=== PATIENT | male | born 1955 | race Caucasian/White ===

== ENCOUNTER → 2025-01-29 11:16 | Outpatient (REF) | payer MEDICARE, SELFPAY | LOC: HWRAD 11:16 | PROVIDERS: ATTENDING PHYSICIAN Family Medicine | DX: M54.41 Lumbago with sciatica, right side (principal); M54.42 Lumbago with sciatica, left side | CPT/HCPCS: 72110 ==

== ENCOUNTER 2025-07-10 16:12 | Emergency (ER) | payer MEDICARE, SELFPAY ==
[2025-07-10 16:14] VITALS: BP 154/86
[2025-07-10 16:42] VITALS: BP 153/77
[2025-07-10 16:43] LABS: COVID-19 Antigen Negative (Negative)
[2025-07-10 16:53] VITALS: BMI 33.6
[2025-07-10 17:00] VITALS: BP 147/84
--- NOTE | 2025-07-10 17:15 | ED.GENMED ---
History of Present Illness
General
Chief Complaint: Cold/Flu/URI Symptoms
Source: patient
Exam Limitations: none
Time Seen by Provider: 07/10/25 16:46
Nursing documentation reviewed up to this point in time: agreed with
History of Present Illness
History of Present Illness:
Patient is a 70-year-old male who presents with fever sore throat and cough that started on Monday, 2 days ago. Patient reports the cough is getting worse. He does have pressure when he coughs and had trouble sleeping last night due to cough.
Patient was a former smoker.
He denies any actual shortness of breath however complains of persistent cough and chest soreness with cough. He does complain of headaches fevers.
He is drinking fluids.
Past History
Past History
ED Past Medical History: Other (BPH with elevated PSA) and Other (History of diverticulitis, hiatal hernia, skin cancer)
ED Past Surgical History: None (Noncontributory), Tonsilectomy and Other (Left arm pinning, surgery on the lumbar spine)
Social History
Tobacco: Non-smoker
Alcohol: Occasional
Drug: None
Personal:
Living: with family
Employment: Employed
Family History
Family History: Other (Noncontributory)
Phy Exam
General Physical Exam
General Presentation: no apparent distress
General age: appears stated age
General Skin: warm and dry
General Habitus: normal
General Mental: alert
General Hydration: appears well hydrated
Pulmonary Exam
Pulmonary Exam: no respiratory distress and other (scattered rhonchi )
Neurological Exam
Neurological Exam: alert and oriented x3
Musculoskeletal Exam
Musculoskeletal Exam: full ROM
Skin Exam
Skin Exam: normal color and warm/dry
Psychiatric Exam
Psychiatric Exam: normal mood/affect
Course
Orders/Labs/Results
Orders:
Orders
07/10/25 16:18
COVID-19 Antigen Urgent
Source: Nasal Swab
INF RAPID [Influenza A+B Rapid Molecular] Urgent
SARA Source: Nasal Swab
Specimen Description:
07/10/25 17:21
Albuterol Nebs [Ventolin Nebules] 2.5 mg INH R NOW STA
Benzonatate [Tessalon Perles] 200 mg PO NOW STA
Oseltamivir Phosphate [Tamiflu] 75 mg PO NOW STA
Chest [CR Chest - 2 Views ] Urgent
Comment:
Reason For Exam: cough + flu
07/10/25 20:23
Albuterol Nebs [Ventolin Nebules] 2.5 mg INH R NOW STA
Vital Signs
Initial and Last Documented VS:
Initial Vital Signs
Temp Pulse Resp BP Pulse Ox
99.9 F 79 20 154/86 96
07/10/25 16:14 07/10/25 16:14 07/10/25 16:14 07/10/25 16:14 07/10/25 16:14
Last Documented Vital Signs
Temp Pulse Resp BP Pulse Ox
99.9 F 64 20 132/72 95
07/10/25 16:14 07/10/25 18:00 07/10/25 18:00 07/10/25 18:00 07/10/25 18:00
MDM/Problems Addressed
Differential Diagnosis Includes:
Not limited to pneumonia, URI, COVID, influenza
MDM/Problems Addressed:
Patient is a 70-year-old male presents with fever sore throat cough, due to worsening cough presented to the ER. Patient is flu positive. He has scattered rhonchi audible cough. Low-grade temp at 99.9. He is not hypoxic. Will give a neb obtain
chest x-ray to rule out pneumonia and give Tessalon Perle and Tamiflu.
Patient is a non-smoker former smoker. He is well-appearing stable for discharge home will reassess after neb and to see how he is feeling.
Patient feeling much better. He was given a second treatment. He is not hypoxic chest x-ray negative for pneumonia feels well to go home will DC with Tamiflu and Tessalon Perles along with inhaler as previously stated. Return precautions given
*Radiology
Radiology exam reviewed: radiology read reviewed
*Pulse Oximetry
SaO2: 96
Oxygen Mode of Delivery: Room air
Patient hypoxic: no
*Critical Care Note
Total Time (30-74mins, 75-104mins- exclusive of procedures): Not Applicable
ED Attending Note
-
Portions of this chart may have been created with voice recognition software.� Occasional wrong word or��sound alike� substitutions may have occurred due to the inherent limitations of voice recognition software.
Discharge Plan
Departure
Patient Disposition: Home (Routine Discharge)
Date of Disposition: 07/10/25
Time of Disposition: 20:44
Patient with high blood pressure during this ER visit?: Yes
Condition: Fair
Covid-19: Not Applicable
Discharge Problem:
Influenza A
Instructions: Flu in adults - ED (DC), BLOOD PRESSURE
Prescriptions:
New
oseltamivir [Tamiflu] 75 mg capsule
75 mg PO BID 5 Days Qty: 10 0RF
benzonatate 200 mg capsule
200 mg PO TID PRN (Reason: Cough) Qty: 10 0RF
albuterol sulfate 90 mcg/actuation HFA aerosol inhaler
2 inh inhalation Q6H PRN (Reason: shortness of breath or wheezing) Qty: 6.7 0RF
No Action
cyanocobalamin (vitamin B-12) 1,000 MCG tablet
1,000 mcg PO DAILY
aspirin 81 MG tablet,delayed release (DR/EC)
81 mg PO DAILY
niacin 500 MG tablet
500 mg PO BID
pyridoxine (vitamin B6) [Vitamin B-6] 100 MG tablet
200 mg PO DAILY
cholecalciferol (vitamin D3) 2,000 UNITS tablet
2,000 units PO DAILY
multivitamin with folic acid [Tab-A-Eric] 1 TABLET tablet
1 tab PO DAILY
lorazepam 0.5 MG tablet
0.5 mg PO DAILYPRN PRN (Reason: anxiety)
amoxicillin-pot clavulanate 1 TABLET tablet
1 tab PO Q12 Qty: 10 0RF
ibuprofen 800 MG tablet
800 mg PO QID PRN (Reason: abdominal pain) Qty: 15 0RF
Referrals:
UNKNOWN - PT DOES,NOT KNOW [Unknown Provider]
Activity Restrictions/Additional Instructions:
As discussed use inhaler as needed every 6 hours. A prescription for Tamiflu as well as Tessalon Perle/cough medicine was sent to your pharmacy. take as directed. Be sure to stay well-hydrated. You may alternate between ibuprofen and Tylenol for
fever chills and bodyaches. Follow-up with your family doctor in the next 2 days return if any worsening of symptoms.
Interventions
Interventions:
*General Assessment Last Done: 07/10/25 16:54
*Neglect/Abuse Screening Last Done: 07/10/25 18:37
*ED COVID-19 Vaccine History Last Done: 07/10/25 16:54
*ED Influenza Vaccine History Last Done: 07/10/25 16:54
[facility] Risk Assessment Tool Last Done: 07/10/25 16:53
*Risk Screen - Suicide (C-SSRS) Last Done: 07/10/25 16:14
ED- Pulmonary Assessment Last Done: 07/10/25 16:53
Discharge Date and Time
Print Language: ARMENIAN
[2025-07-10 18:00] VITALS: BP 132/72
[2025-07-10] MEDS: TESSALON PERLES 200 MG PO (18:17)
[2025-07-10] MEDS: TAMIFLU 75 MG PO (18:17)
[2025-07-10] MEDS: VENTOLIN NEBULES 2.5 MG INH ×2 (18:17→20:28)
== END 2025-07-10 20:59 | disposition home or self-care (01) ==
LOC: EMR 16:12
PROVIDERS: EMERGENCY PHYSICIAN Emergency Medicine; FAMILY PHYSICIAN Family Medicine
DX: J10.1 Influenza due to other identified influenza virus with other respiratory manifestations (principal); N40.0 Benign prostatic hyperplasia without lower urinary tract symptoms; K44.9 Diaphragmatic hernia without obstruction or gangrene; Z87.891 Personal history of nicotine dependence; Z85.828 Personal history of other malignant neoplasm of skin
CPT/HCPCS: 99284; 94640; 71046; 87502; 87811